=== PATIENT | male | born 1965 | race Caucasian/White ===

== ENCOUNTER 2020-09-22 18:52 | Emergency (ER) | payer OTHER ==
[2020-09-22 20:21] LABS: HEMOGLOBIN 15.7 gm/dl (14.0-17.5); RED BLOOD COUNT 5.21 M/UL (4.20-5.50); WHITE BLOOD COUNT 10.6 K/UL (4.5-11.0)
[2020-09-22 21:16] LABS: BUN/CREATININE RATIO 15 (0-10)
[2020-09-22] MEDS ORDERED: PROTONIX40 MG PO (21:24)
== END 2020-09-22 23:15 | disposition home or self-care (01) ==
LOC: ER1 18:52
PROVIDERS: Physician Assistant
DX: S40.011A Contusion of right shoulder, initial encounter (principal); R07.2 Precordial pain; X58.XXXA Exposure to other specified factors, initial encounter; Z88.0 Allergy status to penicillin
CPT/HCPCS: 71045; 71275; 80053; 82550; 82553; 83874; 83880; 84484; 85025; 93005; 99285; Q9967